=== PATIENT | female | born 1970 | race Caucasian/White ===

== ENCOUNTER 2018-09-05 05:09 | Emergency (ER) | payer OTHER ==
[~2018-09-05] VITALS: Wt 63.9 kg
[2018-09-05] MEDS ORDERED: HYDROmorphONE 1 MG/ML SYG IV STA (05:31)
[2018-09-05] MEDS ORDERED: ONDANSETRON 4 MG INJ IV STA ×2 (05:31→09:00)
[2018-09-05] MEDS ORDERED: SIME180C4 PO (05:55)
[2018-09-05] MEDS ORDERED: SERT25TA83 PO (05:55)
[2018-09-05] MEDS ORDERED: LIDOCAINE/MYLANTA 40 ML BTL PO ONE (06:00)
[2018-09-05] MEDS ORDERED: SOD CHLORIDE 0.9% 1,000 ML IV STA (06:22)
[2018-09-05] MEDS ORDERED: PANTOPRAZOLE 40 MG INJ IV ONE (07:00)
--- NOTE | 2018-09-05 07:08 | ERD ---
ER Documentation Chief Complaint Chief Complaint EPIGASTRIC PAIN WITH VOMITING X'S 2 HOURS HPI Patient is a 48-year-old female with no medical problems who presents with abdominal pain and vomiting. She has midepigastric abdominal pain which she says feels like gallbladder disease although she has had her gallbladder removed in the past. She said that the pain started last night. She felt restless throughout the night but at 4 AM started vomiting. The pain started after she started vomiting. She was brought in by ambulance. She denies diarrhea. She has no fevers. She tried Gas-X. Upon review of old medical records this is the patient's first visit to the emergency department. Her primary doctor is at [facility]. ROS All systems reviewed and are negative except as per history of present illness. Medications Home Meds Reported Medications Simethicone (GAS-X ULTRA STRENGTH) 180 Mg Capsule, 180 MG PO, CAP 09/05/18 Sertraline Hcl* (Sertraline Hcl*) 25 Mg Tablet, 25 MG PO DAILY, #30 TAB 09/05/18 Allergies Allergies: Coded Allergies: morphine (Verified Allergy, Unknown, 09/05/18) PMhx/Soc Medical and Surgical Hx: pt denies Medical Hx History of Surgery: Yes (arm reconstruction, cholecystectomy) Hx Alcohol Use: Yes (social) Hx Substance Use: No Hx Tobacco Use: No Smoking Status: Former smoker FmHx Family History: No diabetes Physical Exam Vitals Vital Signs Date Temp Pulse Resp B/P (MAP) Pulse Ox O2 O2 Flow FiO2 Time Delivery Rate 09/05/18 100.1 83 18 144/95 99 05:12 (111) Physical Exam Const: Moderate distress secondary to pain Head: Atraumatic Eyes: Normal Conjunctiva ENT: Normal External Ears, Nose and Mouth. Neck: Full range of motion. No meningismus. Resp: Clear to auscultation bilaterally Cardio: Regular rate and rhythm, no murmurs Abd: Soft, epigastric tenderness to palpation with guarding Skin: No petechiae or rashes Back: No midline or flank tenderness Ext: No cyanosis, or edema Neur: Awake and alert Psych: Normal Mood and Affect Result Diagram: 09/05/18 0604 09/05/18 0537 Results 24 hrs Laboratory Tests Test 09/05/18 05:37 09/05/18 05:38 09/05/18 05:49 09/05/18 06:04 Sodium Level 139 mmol/L Potassium Level 4.1 mmol/L Chloride Level 107 mmol/L Carbon Dioxide 22 mmol/L Level Anion Gap 10 Blood Urea 17 mg/dl Nitrogen Creatinine 0.64 mg/dl Est Glomerular > 60 mL/min Filtrat Rate mL/min Glucose Level 127 mg/dl Calcium Level 8.8 mg/dl Total Bilirubin 0.8 mg/dl Direct Bilirubin 0.00 mg/dl Indirect 0.8 mg/dl Bilirubin Aspartate Amino 45 IU/L Transf (AST/SGOT) Alanine 25 IU/L Aminotransferase (ALT/SGPT) Alkaline 43 IU/L Phosphatase Total Protein 6.6 g/dl Albumin 4.2 g/dl Globulin 2.40 g/dl Albumin/Globulin 1.75 Ratio Lipase 1338 U/L Urine Color YELLOW Urine Clarity CLOUDY Urine pH 5.0 Urine Specific 1.021 Bertha Urine Ketones NEGATIVE mg/dL Urine Nitrite NEGATIVE mg/dL Urine Bilirubin NEGATIVE mg/dL Urine NEGATIVE mg/dL Urobilinogen Urine Leukocyte NEGATIVE Reji/ul Esterase Urine Microscopic 2 /HPF RBC Urine Microscopic 5 /HPF WBC Urine Squamous MANY /HPF Epithelial Cells Urine Bacteria FEW /HPF Urine Mucus FEW /HPF Urine Hemoglobin 3+ mg/dL Urine Glucose NEGATIVE mg/dL Urine Total NEGATIVE mg/dl Protein POC Beta HCG, NEGATIVE Qualitative White Blood Count 6.8 10^3/ul Red Blood Count 4.13 10^6/ul Hemoglobin 12.6 g/dl Hematocrit 38.2 % Mean Corpuscular 92.5 fl Volume Mean Corpuscular 30.5 pg Hemoglobin Mean Corpuscular 33.0 g/dl Hemoglobin Concen t Red Cell 11.9 % Distribution Width Platelet Count 213 10^3/UL Mean Platelet 10.4 fl Volume Immature 0.300 % Granulocytes % Neutrophils % 89.7 % Lymphocytes % 6.0 % Monocytes % 3.7 % Eosinophils % 0.0 % Basophils % 0.3 % Nucleated Red 0.0 /100WBC Blood Cells % Immature 0.020 10^3/ul Granulocytes # Neutrophils # 6.1 10^3/ul Lymphocytes # 0.4 10^3/ul Monocytes # 0.3 10^3/ul Eosinophils # 0.0 10^3/ul Basophils # 0.0 10^3/ul Nucleated Red 0.0 10^3/ul Blood Cells # Current Medications Medications Dose Sig/Rosa Start Time Status Last (Trade) Ordered Route PRN Stop Time Admin Dose Reason Admin 1 mg ONCE STAT 09/05/18 DC 09/05/18 Hydromorphone IV 05:31 05:37 HCl 09/05/18 05:32 (Dilaudid) Ondansetron 4 mg ONCE STAT 09/05/18 DC 09/05/18 HCl (Zofran IV 05:31 05:37 Inj) 09/05/18 05:32 40 ml ONCE ONCE 09/05/18 DC 09/05/18 Miscellaneous PO 06:00 06:07 Medication 09/05/18 06:01 (Gi Cocktail (2)) Sodium 1,000 ml @ Q1H STAT 09/05/18 09/05/18 Chloride 1,000 mls/hr IV 06:22 06:32 09/05/18 07:21 40 mg ONCE ONCE 09/05/18 DC 09/05/18 Pantoprazole IV 07:00 06:37 (Protonix 09/05/18 07:01 Iv) Procedures/MDM Patient is a 48-year-old female presents with abdominal pain and vomiting. She was found to have acute pancreatitis with a lipase of greater than 1300. The patient will be transferred to [facility] given her insurance and Dr. Mathew is a accepting physician. The patient will be transferred by ambulance. I doubt appendicitis, cholecystitis, pancreatitis, or bowel obstruction. The patient said that she was drinking this past week because of a wedding that she went to and this may be the cause of her pancreas inflammation. Departure Diagnosis: Primary Impression: Abdominal pain Abdominal location: epigastric Qualified Codes: R10.13 - Epigastric pain Additional Impression: Pancreatitis Chronicity: acute Pancreatitis type: alcohol induced Acute pancreatitis complication: unspecified Qualified Codes: K85.20 - Alcohol induced acute pancreatitis without necrosis or infection Condition: SARAH Chris MD Sep 05, 2018 07:08
[2018-09-05] MEDS ORDERED: HYDROmorphONE 2 MG/ML SYG IV STA (07:56)
[2018-09-05 08:23] VITALS: BP 104/77; PULSE 87; RESP 15
== END 2018-09-05 10:17 ==
LOC: E/R 05:09
DX: K85.20 Alcohol induced acute pancreatitis without necrosis or infection (principal); Z87.891 Personal history of nicotine dependence
CPT/HCPCS: 36415; 80053; 81001; 81025; 83615; 83690; 85025; 96374; 96375; 96376; 99285; C9113; J1170; J2405; J7030